=== PATIENT | female | born 1970 | race Caucasian/White ===

== ENCOUNTER → 2017-02-11 | Outpatient (CLI) | payer BC ==
[~2017-02-11] MED LIST: CETI10TA99 PO; CLON0.3T PO; FEXO1TAB46 PO; GADAVIST IV PRN; MULTTAB58 PO; Primrose Oil PO; ZNTT/150 PO
--- NOTE | 2017-02-11 17:32 | DIAGNOSTIC IMAGING REPORT ---
MRI OF THE BRAIN WITHOUT AND WITH IV CONTRAST CLINICAL HISTORY: R51 New onset of headaches New onset daily headache. Strong family COMPARISON STUDY: No previous studies for comparison. TECHNIQUE: Utilizing a 1.5 Joanie magnet and dedicated coil, multiplanar, multiecho imaging of the brain was performed pre and postcontrast administration. IV administration of 8.5 mL of Gadavist contrast was uneventful. FINDINGS: Diffusion-weighted images are normal. Signal characteristics of the cerebellar as well as cerebral hemispheres are within normal limits. Ventricular system is midline. Sella and parasellar regions are unremarkable. The ventricular system is midline. Postcontrast images show no evidence for abnormal postcontrast enhancement. IMPRESSION: Normal study. Electronically signed by: Clarke Cooper M.D. 02/11/2017 5:30 PM Dictated Date/Time: 02/11/2017 5:28 PM
== END | disposition home or self-care (01) ==
LOC: C.MRI 02-09 16:48
PROVIDERS: ATTEND Nurse Practitioner
DX: R51 Headache (principal); Z82.3 Family history of stroke; Z84.89 Family history of other specified conditions

== ENCOUNTER → 2017-08-02 | Outpatient (CLI) | payer BC ==
[~2017-08-02] MED LIST changes: -GADAVIST IV PRN
== END | disposition home or self-care (01) ==
LOC: C.PAPS 12:00
PROVIDERS: ATTEND Obstetrics & Gynecology
DX: Z01.419 Encounter for gynecological examination (general) (routine) without abnormal findings (principal)

== ENCOUNTER → 2017-08-31 | Outpatient (CLI) | payer BC ==
--- NOTE | 2017-08-31 16:56 | DIAGNOSTIC IMAGING REPORT ---
R WRIST MIN 3 VIEWS ROUTINE CLINICAL HISTORY: Right wrist pain following fall. COMPARISON: None FINDINGS: Alignment of the right wrist is anatomic. No fracture is identified. The carpal bones are intact. IMPRESSION: No acute fracture or dislocation of the right wrist. Electronically signed by: Cj Dozier M.D. 08/31/2017 4:55 PM Dictated Date/Time: 08/31/2017 4:54 PM
== END | disposition home or self-care (01) ==
LOC: C.LAB1850 16:21
PROVIDERS: ATTEND Family Medicine
DX: Z01.89 Encounter for other specified special examinations (principal)

== ENCOUNTER → 2017-09-10 | Outpatient (CLI) | payer BC, OTHER ==
--- NOTE | 2017-09-10 14:46 | DIAGNOSTIC IMAGING REPORT ---
R WRIST W/NAVICULAR MIN 3 VIEWS HISTORY: 46 years-old Female RIGHT WRIST PAIN acute right wrist pain COMPARISON: Right wrist radiographs 08/31/2017 TECHNIQUE: 4 views of the right wrist FINDINGS: No definite acute fracture or dislocation identified. No significant degenerative changes or opaque foreign body. There is a linear ill-defined lucency oriented along the long axis of the mid to distal portion of the scaphoid seen only on the PA navicular view. IMPRESSION: Ill-defined lucency oriented along the long axis of the mid to distal portion of the scaphoid seen only on the PA navicular view suggests trabecular markings with acute nondisplaced fracture thought to be less likely. Correlate with point tenderness. The above report was generated using voice recognition software. It may contain grammatical, syntax or spelling errors. Electronically signed by: Luis Amezcua M.D. 09/10/2017 2:44 PM Dictated Date/Time: 09/10/2017 2:41 PM
== END | disposition home or self-care (01) ==
LOC: C.RDSM 14:26
PROVIDERS: ATTEND Family Medicine
DX: M25.531 Pain in right wrist (principal); R93.7 Abnormal findings on diagnostic imaging of other parts of musculoskeletal system

== ENCOUNTER → 2017-11-12 | Outpatient (CLI) | payer OTHER ==
[~2017-11-12] MED LIST changes: +RANI150T85 PO; -ZNTT/150 PO
--- NOTE | 2017-11-12 13:51 | DIAGNOSTIC IMAGING REPORT ---
RIGHT HAND 3 VIEWS HISTORY: Fall. RT HAND PAIN COMPARISON: Right wrist 09/10/2017. FINDINGS: There is no fracture or dislocation. Soft tissues are unremarkable. No radiopaque foreign bodies. IMPRESSION: No fractures. Electronically signed by: Mario Alberto Lai M.D. 11/12/2017 1:49 PM Dictated Date/Time: 11/12/2017 1:47 PM
== END | disposition home or self-care (01) ==
LOC: C.RAD1850 13:30
PROVIDERS: ATTEND Nurse Practitioner Adult Health
DX: M79.641 Pain in right hand (principal); W19.XXXA Unspecified fall, initial encounter

== ENCOUNTER → 2017-12-06 | Outpatient (CLI) | payer OTHER ==
--- NOTE | 2017-12-06 09:33 | DIAGNOSTIC IMAGING REPORT ---
R WRIST W/NAVICULAR MIN 3 VIEWS CLINICAL HISTORY: 46 years-old Female presenting with PERSISTENT HAND PAIN. TECHNIQUE: Frontal, bilateral oblique, lateral, and scaphoid views of the right wrist were obtained. COMPARISON: 09/10/2017. FINDINGS: The previously proposed abnormality along the long axis of the scaphoid is not apparent on this radiograph. No acute fracture or malalignment. No advanced degenerative change. No radiographic soft tissue abnormality. IMPRESSION: No acute osseous injury. Electronically signed by: Peterson Curtis M.D. 12/06/2017 9:32 AM Dictated Date/Time: 12/06/2017 9:30 AM
== END | disposition home or self-care (01) ==
LOC: C.LAB1850 08:57
PROVIDERS: ATTEND Nurse Practitioner Adult Health
DX: M79.641 Pain in right hand (principal); W19.XXXA Unspecified fall, initial encounter